=== PATIENT | male | born 1975 | race African-American/Black ===

== ENCOUNTER 2023-09-26 09:31 | Emergency (ER) | payer MEDICAID ==
[~2023-09-26] VITALS: Ht 172.7 cm; Wt 81.6 kg
[2023-09-26 09:38] VITALS: O2SAT 97
[2023-09-26 10:40] LABS: BASOPHILS % 0.6 % (0.0-2.0); EOSINOPHILS % 1.9 % (0.0-5.0); HEMOGLOBIN. 13.3 g/dL (14.0-18.0); LYMPHOCYTES % 20.6 % (20.0-50.0); MEAN CORPUSCULAR HGB CONC 34.9 g/dL (31.0-37.0); MEAN CORPUSCULAR VOLUME 85.9 fL (80.0-94.0); MEAN PLATELET VOLUME 7.1 fl (7.4-10.4); MONOCYTES % 9.5 % (2.0-8.0); NEUTROPHILS % 67.4 % (40.0-76.0); PLATELET 127 x1000/uL (130-400); RED BLOOD CELL COUNT 4.42 mill/uL (4.7-6.1); RED CELL DISTRIBUTION WIDTH 13.7 % (11.6-14.6); WHITE BLOOD COUNT 6.2 x1000/uL (4.5-11.0)
[2023-09-26] MEDS: ASPIRIN 325MG EC TABLET PO ONE (10:42)
[2023-09-26] MEDS: NITROGLYCERIN 0.4MG TABLET SL SL ONE (10:42)
[2023-09-26 10:51] LABS: CARBON DIOXIDE 23 mEq/L (21-32); CHLORIDE 102 mEq/L (98-107); POTASSIUM 3.8 mEq/L (3.5-5.1); SODIUM 132 mEq/L (136-145)
[2023-09-26 10:52] LABS: CALCIUM 8.7 mg/dL (8.7-10.4)
[2023-09-26 10:56] LABS: CREATININE 0.8 mg/dL (0.6-1.3)
[2023-09-26 10:57] LABS: GLUCOSE 301 mg/dL (70-105); UREA NITROGEN BLOOD 11 mg/dL (9-23)
[2023-09-26 11:01] LABS: TROPONIN I HIGH SENSITIVITY < 4 ng/L (3.0-53)
[2023-09-26 13:42] LABS: TROPONIN I HIGH SENSITIVITY < 4 ng/L (3.0-53)
[2023-09-26 13:56] VITALS: BP 98/62; PULSE 63; RESP 14; TEMP 98
== END 2023-09-26 14:14 | disposition home or self-care (01) ==
LOC: ER 10:27
DX: U07.1 COVID-19 (principal); R07.9 Chest pain, unspecified; E11.65 Type 2 diabetes mellitus with hyperglycemia; Z88.0 Allergy status to penicillin
CPT/HCPCS: 80048; 83880; 85025; 84484; 36415; 71045; 93005; 99285; Z7610